=== PATIENT | male | born 1945 | race Caucasian/White ===

== ENCOUNTER 2017-10-02 21:41 | Observation (INO) | payer OTHER ==
[~2017-10-02] VITALS: Ht 167.6 cm; Wt 87.5 kg
[~2017-10-02 21:41] MED LIST: AMARYL4 MG PO; BACLOFEN10 MG PO; BUSPAR15 MG PO; BUSPIRONE HCL15 MG PO; CARDIZEM90 MG PO; CARISOPRODOL350 MG PO; CLINORIL150 MG PO; COZAAR100 MG PO; DESYREL 150 MG150 MG PO; DILTIAZEM ER90 MG PO; FEOSOL325 MG PO; FERROUS SULFAT325 MG PO; FUROSEMIDE20 MG PO; GLIMEPIRIDE4 MG PO; HYDROCHLOROTHIA25 MG PO; HYDROCODON-ACE1 EAC3 PO; K-TAB ER8 MEQ PO; LASIX20 MG PO; LOSARTAN POTAS100 MG PO; METFORMIN HCL500 MG PO; METHADONE10 MG PO; METOLAZONE5 MG PO; MICARDIS40 MG PO; MIRAPEX0.5 MG PO; NEURONTIN300 MG PO; POTASSIUM CHLOR8 ME3 PO; PRILOSEC40 MG PO; PROMETHAZINE HC25 M1 PO; SERTRALINE HCL100 MG PO; SULINDAC150 MG PO; TRAZODONE HCL150 MG PO; VISTARIL50 MG PO; ZOLOFT100 MG PO
[2017-10-02 22:20] LABS: HEMATOCRIT 36.8 % (38.0-50.0); HEMOGLOBIN 12.3 G/DL (12.5-16.6); MCH 30.1 PG (29.0-34.0); MCHC 33.4 G/DL (30.0-36.0); MCV 90.2 FL (86-99); PLATELET COUNT 162 K/uL (156-360); RBC DIS.WIDTH-CV 13.9 % (11.8-14.6); RBC DIS.WIDTH-SD 46.4 % (39-53); RED BLOOD COUNT 4.08 M/uL (4.00-5.50); WHITE BLOOD COUNT 7.8 K/uL (4.1-10.2)
[2017-10-02 22:33] LABS: APPEARANCE CLEAR ((CLEAR)); BILIRUBIN NEGATIVE; BLOOD NEGATIVE; COLOR STRAW ((YELLOW)); GLUCOSE (STRIP) NEGATIVE; KETONES NEGATIVE; LEUKOCYTES NEGATIVE; NITRITE NEGATIVE; PROTEIN (STRIP) 30; UROBILINOGEN 0.2 MG/DL (0.2-1.0)
[2017-10-02 22:34] LABS: ALBUMIN 4.1 g/dL (3.2-4.8); CHLORIDE 102 mEq/L (99-109); POTASSIUM 4.1 mEq/L (3.7-5.4); SODIUM 141 mEq/L (136-147)
[2017-10-02 22:36] LABS: GLUCOSE 105 mg/dL (70-99); TOTAL PROTEIN 6.6 g/dL (6.4-8.3)
[2017-10-02 22:38] LABS: TOTAL BILIRUBIN 0.3 mg/dL (0.0-1.0)
[2017-10-02 22:40] LABS: ALKALINE PHOSPHATASE 83 IU/L (3-129); CREATININE 1.7 mg/dL (0.6-1.3); GFR ESTIMATE (CALCULATED) 42 mL/min/ (58.99-99999); TROP-I INTERPRETATION NEGATIVE; TROPONIN-I 0.01 ng/mL (0.0-0.30)
[2017-10-02 22:41] LABS: UREA NITROGEN (BUN) 24 mg/dL (9-23)
[2017-10-02 22:42] LABS: AST (GOT) 20 IU/L (2-34); DIRECT BILIRUBIN 0.1 mg/dL (0.0-0.3)
[2017-10-02 22:43] LABS: ALT (GPT) 7 IU/L (3-49); LIPASE 15 U/L (1.0-51.0)
[2017-10-03 08:52] LABS: HEMATOCRIT 40.7 % (38.0-50.0); HEMOGLOBIN 13.6 G/DL (12.5-16.6); MCH 29.8 PG (29.0-34.0); MCHC 33.4 G/DL (30.0-36.0); MCV 89.1 FL (86-99); PLATELET COUNT 181 K/uL (156-360); RBC DIS.WIDTH-SD 45.5 % (39-53); RED BLOOD COUNT 4.57 M/uL (4.00-5.50); WHITE BLOOD COUNT 9.7 K/uL (4.1-10.2)
[2017-10-03 09:07] LABS: CHLORIDE 108 mEq/L (99-109); POTASSIUM 3.9 mEq/L (3.7-5.4); SODIUM 140 mEq/L (136-147)
[2017-10-03 09:09] LABS: GLUCOSE 127 mg/dL (70-99)
[2017-10-03 09:13] LABS: CREATININE 1.5 mg/dL (0.6-1.3); GFR ESTIMATE (CALCULATED) 49 mL/min/ (58.99-99999); TROP-I INTERPRETATION NEGATIVE; TROPONIN-I < 0.01 ng/mL (0.0-0.30)
[2017-10-03 09:14] LABS: UREA NITROGEN (BUN) 18 mg/dL (9-23)
[2017-10-03 09:31] VITALS: BP 186/86
== END 2017-10-03 09:29 | disposition left against medical advice (07) ==
LOC: EME 21:41 → EDOF 10-03 00:51 → CANRESERV 10-03 00:52 → ENRESERV 10-03 00:52 → EDOF 10-03 09:29
PROVIDERS: Hospitalist; Physician Assistant
DX: I16.0 Hypertensive urgency (principal); I12.9 Hypertensive chronic kidney disease with stage 1 through stage 4 chronic kidney disease, or unspecified chronic kidney disease; N18.3 Chronic kidney disease, stage 3 (moderate); R07.9 Chest pain, unspecified; E11.649 Type 2 diabetes mellitus with hypoglycemia without coma; E11.22 Type 2 diabetes mellitus with diabetic chronic kidney disease; E11.65 Type 2 diabetes mellitus with hyperglycemia; G89.4 Chronic pain syndrome; F32.9 Major depressive disorder, single episode, unspecified; F41.9 Anxiety disorder, unspecified; R51 Headache; I25.2 Old myocardial infarction; Z82.49 Family history of ischemic heart disease and other diseases of the circulatory system; Z79.891 Long term (current) use of opiate analgesic; Z79.84 Long term (current) use of oral hypoglycemic drugs; Z79.82 Long term (current) use of aspirin
CPT/HCPCS: 70450; 71046; 80048; 80076; 81003; 82948; 83690; 84484; 85027; 93005; 99281; 99285; G0378; J1644; J2765; J7030

== ENCOUNTER 2018-05-02 21:07 | Emergency (ER) | payer OTHER ==
[~2018-05-02] VITALS: Ht 167.6 cm; Wt 82.8 kg
[2018-05-02 21:10] VITALS: BP 148/113
== END 2018-05-02 21:56 | disposition left against medical advice (07) ==
LOC: EME 21:07
DX: S80.862A Insect bite (nonvenomous), left lower leg, initial encounter (principal); S80.861A Insect bite (nonvenomous), right lower leg, initial encounter; Z53.21 Procedure and treatment not carried out due to patient leaving prior to being seen by health care provider